=== PATIENT | female | born 1985 | race Caucasian/White ===

== ENCOUNTER 2016-09-12 18:40 | Emergency (ER) | payer BC, MEDICAID ==
[2016-09-12 18:46] VITALS: BP 163/95
[2016-09-12] MEDS ORDERED: DIPHTH,PERTUSS(ACELL),TET VAC 0.5 ML VIAL IM ONE ×2 (19:09→19:11)
--- NOTE | 2016-09-12 19:32 | ERNOTE ---
Upper Extremity HPI - Narrative Date of Service: 09/12/16 - General Extremities Pain Location: hand: left - laceration to lateral aspect of left hand, inflicted by kitchen knife. Source: patient Exam Limitations: no limitations - Immun/Allergies/Home Medications Immunizations: IMMUNIZATION HX Immunizations Up to Date Yes Allergies/Adverse Reactions: Allergies Allergy/AdvReac Type Severity Reaction Status Date / Time beta blockers Allergy Uncoded 09/12/16 18:48 Home Medications: HOME MEDICATIONS Topiramate [Topamax] 2 tab PO BID 09/12/16 [Last Taken Unknown] - History of Present Illness Narrative: Presents with c/o laceration to the radial aspect of her left hand. Inflicted by a kitchen knife she was using with her right hand. Bleeding controlled by pressure. Occurred: just prior to arrival Location of Incident: home Severity: moderate Method of Injury: Reports: incised Review of Systems - Review of Systems Constitutional: Present: no symptoms reported EYE: Present: no symptoms reported ENT: Present: no symptoms reported Respiratory: Present: no symptoms reported Cardiology: Present: no symptoms reported Gastrointestinal/Abdominal: Present: no symptoms reported Genitourinary: Present: no symptoms reported Musculoskeletal: Present: See HPI Skin: Present: See HPI Neurological: Present: no symptoms reported Endocrine: Present: no symptoms reported Hematologic/Lymphatic: Present: no symptoms reported Psych: Present: no symptoms reported All Other Systems: All systems neg except as marked - Patient's Past Medical History Patient History - Medical: Migraines Patient History - Cardiac/Respiratory: Hypertension Patient History - Cancer: No Hx of Cancer Patient History - Surgical Procedures: T & A - Social History Smoking Status: Current every day smoker Alcohol Use: rarely Drug Use: none - Immunizations Immunizations Up to Date: Yes Physical Exam - Physical Exam General Appearance: Present: wd/wn, alert, no apparent distress Respiratory: Present: no respiratory distress, normal breath sounds, no accessory muscle use, chest nontender, lungs clear Cardiovascular/Chest: Present: regular rate, rhythm, no murmur Extremity Exam: Present: normal except - - 1.5 cm superficial laceration noted on radial aspect of right hand, just proximal to base of 2nd finger. No active bleeding. Neurological Exam: Present: alert, oriented Skin Exam: Present: normal color, warm/dry ED Progress - Vital Signs Patient's Vital Signs:: I have reviewed the patient's vital signs. Vital Signs: Vital Signs 09/12/16 18:43 Temperature 36.6 C Pulse Rate 96 Respiratory 20 Rate Blood Pressure 163/95 O2 Sat by Pulse 94 Oximetry - Progress/Reassessment Chief Complaint: Hand Injury/Pain Progress:: Improved Procedures Left Lateral Hand Date and Time: 09/12/16 @ 7:30 pm I & D Prep: betadine prep Length of Repair/Wound (cm): 1.5 Wound's Depth/Shape: superficial Wound Explored: clean, no foreign body Wound Intervention: irrigated w/saline Distal NVT: neuro/vasc intact, no tendon injury Wound Repaired With: Dermabond, Steri-strips Complications: Pt juan procedure well Departure Clinical Impression: Laceration of left hand without complication, excluding fingers Qualifiers: Encounter type: initial encounter Qualified Code(s): S61.412A - Laceration without foreign body of left hand, initial encounter - Departure Disposition: Home self-care Condition: Good Instructions: Tissue Adhesive Wound Care, [id number] Referrals: Justin Madsen DO [Primary Care Provider] -
== END 2016-09-12 20:10 | disposition home or self-care (01) ==
LOC: ER 18:40
PROC: 0HQGXZZ Repair Left Hand Skin, External Approach (ICD-10-PCS; principal; 2016-09-12)
DX: S61.412A Laceration without foreign body of left hand, initial encounter (principal); F17.210 Nicotine dependence, cigarettes, uncomplicated; W26.0XXA Contact with knife, initial encounter; Y92.009 Unspecified place in unspecified non-institutional (private) residence as the place of occurrence of the external cause; G43.909 Migraine, unspecified, not intractable, without status migrainosus; Z23 Encounter for immunization